=== PATIENT | female | born 1965 | race African-American/Black ===

== ENCOUNTER 2017-01-25 11:35 | Inpatient (IN) | payer MEDICARE ==
[~2017-01-25] VITALS: Ht 167.6 cm; Wt 93.1 kg
[~2017-01-25 11:35] MED LIST: DIVA500T52 PO; LISI-660 PO; METF500T PO; RISP2TAB76 PO; SIMV-259 PO; VITAD1000 PO
[2017-01-25] MEDS ORDERED: LORazepam 2 MG/ML VIAL IM ONE ×2 (12:00→17:30)
[2017-01-25] MEDS ORDERED: DiphenhydrAMINE HCL 50 MG/ML VIAL IM ONE ×2 (12:00→17:30)
[2017-01-25] MEDS ORDERED: HALOPERIDOL LACTATE 5 MG/ML VIAL IM ONE ×2 (12:00→17:30)
[2017-01-25 12:45] LABS: BASOPHILS # (AUTO) 0.02 K/uL (0.00-0.20); BASOPHILS % (AUTO) 0.2 % (0.0-2.0); EOSINOPHILS # (AUTO) 0.05 K/uL (0.00-0.70); LYMPHOCYTES # (AUTO) 1.6 K/uL (1.0-4.8); LYMPHOCYTES % (AUTO) 23.7 % (22.0-44.0); MEAN CORPUSCULAR HEMOGLOBIN 27.4 pg (26.0-34.0); MEAN CORPUSCULAR HGB CONC 32.6 G/dL (31.0-37.0); MEAN CORPUSCULAR VOLUME 84 fL (80-100); MONOCYTES # (AUTO) 0.3 K/uL (0.1-1.0); MONOCYTES % (AUTO) 4.8 % (2.0-9.0); NEUTROPHILS # (AUTO) 4.8 K/uL (1.8-7.7); NEUTROPHILS % (AUTO) 70.5 % (40.0-70.0); PLATELET COUNT (AUTO) 328 K/uL (150-450); RED BLOOD CELL COUNT(AUTO) 5.11 MIL/uL (4.00-5.20); RED CELL DISTRIBUTION WIDTH 16.2 % (11.5-14.5); WHITE BLOOD COUNT (AUTO) 6.8 K/uL (4.5-11.0)
[2017-01-25 12:59] LABS: ANION GAP 9 mmol/L (8-16); CARBON DIOXIDE 26 mmol/L (22-29); CHLORIDE 100 mmol/L (98-107); CREATININE 0.73 mg/dL (0.60-1.30); GLOMERULAR FILTR. RATE CALC > 60 mL/min (>60); POTASSIUM 3.9 mmol/L (3.5-5.1); SODIUM SERUM 135 mmol/L (136-145); UREA NITROGEN, BLOOD 11 mg/dL (7-18)
[2017-01-25 13:00] LABS: ALANINE AMINOTRANSFERASE 23 U/L (12-78); ALBUMIN 3.5 g/dL (3.4-5.0); ASPARTATE AMINOTRANSFERASE 12 U/L (15-37); BILIRUBIN,TOTAL 0.5 mg/dL (0.1-1.0); TOTAL PROTEIN, SERUM 7.5 g/dL (6.4-8.2)
[2017-01-25 15:28] LABS: VALPROIC ACID < 3 mcg/mL (50-100)
[2017-01-25] MEDS ORDERED: ZOLPIDEM TARTRATE 10 MG TABLET PO PRN (16:15)
[2017-01-25] MEDS ORDERED: LORazepam 2 MG TABLET PO PRN (16:15)
[2017-01-25] MEDS ORDERED: GLUCAGON,HUMAN RECOMBINANT 1 MG VIAL IM PRN (18:15)
[2017-01-25] MEDS ORDERED: INSULIN ASPART 100 UNITS/ML SQ PRN (18:15)
[2017-01-25 20:22] VITALS: BP 117/68
[2017-01-25] MEDS: RisperiDONE 2 MG TABLET PO SCH (20:38)
[2017-01-25 20:47] LABS: GLUCOSE COMMENT 1 Received Meds; GLUCOSE,POINT OF CARE 313 MG/DL (70-110)
[2017-01-25] MEDS ORDERED: DIVALPROEX SODIUM 500 MG ER TABLET PO SCH (21:00)
[2017-01-26] MEDS: MetFORMIN HCL 500 MG TABLET PO SCH ×2 (06:26→16:46)
[2017-01-26 06:42] VITALS: BP 125/76
[2017-01-26] MEDS: CHOLECALCIFEROL (VIT D3) 1,000 UNITS TABLET PO SCH (08:24)
[2017-01-26] MEDS: RisperiDONE 2 MG TABLET PO SCH (08:24)
[2017-01-26] MEDS ORDERED: LORazepam 2 MG/ML VIAL ONE (15:55)
[2017-01-26] MEDS ORDERED: HALOPERIDOL LACTATE 5 MG/ML VIAL ONE (15:55)
[2017-01-26] MEDS ORDERED: DiphenhydrAMINE HCL 50 MG/ML VIAL IM ONE (16:00)
[2017-01-26] MEDS ORDERED: HALOPERIDOL LACTATE 5 MG/ML VIAL IM ONE (16:00)
[2017-01-26] MEDS ORDERED: LORazepam 2 MG/ML VIAL IM ONE (16:00)
[2017-01-26] MEDS: RisperiDONE 3 MG TABLET PO SCH (16:51)
[2017-01-26] MEDS: SIMVASTATIN 10 MG TABLET PO SCH (21:00)
[2017-01-26] MEDS: DIVALPROEX SODIUM 500 MG ER TABLET PO SCH (21:00)
[2017-01-27 02:35] VITALS: BP 118/73
[2017-01-27] MEDS: MetFORMIN HCL 500 MG TABLET PO SCH ×2 (06:42→16:36)
[2017-01-27 08:19] VITALS: BP 108/70
[2017-01-27] MEDS: CHOLECALCIFEROL (VIT D3) 1,000 UNITS TABLET PO SCH (09:00)
[2017-01-27] MEDS: RisperiDONE 3 MG TABLET PO SCH ×2 (09:00→16:36)
[2017-01-27 16:10] VITALS: BP 134/83
[2017-01-27] MEDS: SIMVASTATIN 10 MG TABLET PO SCH (21:00)
[2017-01-27] MEDS: DIVALPROEX SODIUM 500 MG ER TABLET PO SCH (21:00)
[2017-01-28 00:38] VITALS: BP 118/76
[2017-01-28] MEDS: MetFORMIN HCL 500 MG TABLET PO SCH ×2 (06:08→16:33)
[2017-01-28 08:19] VITALS: BP 118/69
[2017-01-28] MEDS: CHOLECALCIFEROL (VIT D3) 1,000 UNITS TABLET PO SCH (09:00)
[2017-01-28] MEDS: RisperiDONE 3 MG TABLET PO SCH ×2 (09:35→16:33)
[2017-01-28 16:33] VITALS: BP 137/75
[2017-01-28] MEDS: DIVALPROEX SODIUM 500 MG ER TABLET PO SCH (21:12)
[2017-01-28] MEDS: SIMVASTATIN 10 MG TABLET PO SCH (21:12)
[2017-01-29] MEDS: MetFORMIN HCL 500 MG TABLET PO SCH ×2 (06:36→16:42)
[2017-01-29 06:48] VITALS: BP 127/66
[2017-01-29 08:11] VITALS: BP 121/80
[2017-01-29] MEDS: RisperiDONE 3 MG TABLET PO SCH ×2 (08:27→16:43)
[2017-01-29] MEDS: CHOLECALCIFEROL (VIT D3) 1,000 UNITS TABLET PO SCH (08:30)
[2017-01-29 16:12] VITALS: BP 143/88
[2017-01-29] MEDS: SIMVASTATIN 10 MG TABLET PO SCH (20:13)
[2017-01-29] MEDS: DIVALPROEX SODIUM 500 MG ER TABLET PO SCH (20:13)
[2017-01-30 05:40] VITALS: BP 128/82
[2017-01-30] MEDS: MetFORMIN HCL 500 MG TABLET PO SCH ×2 (06:41→16:21)
[2017-01-30] MEDS: CHOLECALCIFEROL (VIT D3) 1,000 UNITS TABLET PO SCH (08:09)
[2017-01-30] MEDS: RisperiDONE 3 MG TABLET PO SCH ×2 (08:09→16:21)
[2017-01-30 08:37] VITALS: BP 122/67
[2017-01-30 16:07] VITALS: BP 130/67
[2017-01-30] MEDS: DIVALPROEX SODIUM 500 MG ER TABLET PO SCH (20:04)
[2017-01-30] MEDS: SIMVASTATIN 10 MG TABLET PO SCH (20:04)
[2017-01-31] MEDS: MetFORMIN HCL 500 MG TABLET PO SCH ×2 (06:11→16:53)
[2017-01-31 07:06] VITALS: BP 125/72
[2017-01-31] MEDS: CHOLECALCIFEROL (VIT D3) 1,000 UNITS TABLET PO SCH (08:19)
[2017-01-31] MEDS: RisperiDONE 3 MG TABLET PO SCH ×2 (08:19→16:19)
[2017-01-31 08:39] VITALS: BP 120/62
[2017-01-31 16:07] VITALS: BP 102/70
[2017-01-31] MEDS: DIVALPROEX SODIUM 500 MG ER TABLET PO SCH (21:00)
[2017-01-31] MEDS: SIMVASTATIN 10 MG TABLET PO SCH (21:00)
[2017-02-01 06:39] VITALS: BP 136/84
[2017-02-01] MEDS: MetFORMIN HCL 500 MG TABLET PO SCH ×2 (06:50→17:03)
[2017-02-01] MEDS: CHOLECALCIFEROL (VIT D3) 1,000 UNITS TABLET PO SCH (08:11)
[2017-02-01] MEDS: RisperiDONE 3 MG TABLET PO SCH ×2 (08:11→16:45)
[2017-02-01 08:48] VITALS: BP 122/69
[2017-02-01 16:37] VITALS: BP 137/72
[2017-02-01] MEDS: DIVALPROEX SODIUM 500 MG ER TABLET PO SCH (20:02)
[2017-02-01] MEDS: SIMVASTATIN 10 MG TABLET PO SCH (20:02)
[2017-02-02 01:51] VITALS: BP 122/75
[2017-02-02] MEDS: MetFORMIN HCL 500 MG TABLET PO SCH ×2 (06:41→17:00)
[2017-02-02] MEDS: RisperiDONE 3 MG TABLET PO SCH ×2 (08:00→17:00)
[2017-02-02] MEDS: HALOPERIDOL 5 MG TABLET PO SCH ×2 (08:00→17:00)
[2017-02-02] MEDS: CHOLECALCIFEROL (VIT D3) 1,000 UNITS TABLET PO SCH (08:00)
[2017-02-02 08:33] VITALS: BP 131/75
[2017-02-02 16:00] VITALS: BP 115/63
[2017-02-02] MEDS: SIMVASTATIN 10 MG TABLET PO SCH (20:49)
[2017-02-02] MEDS: DIVALPROEX SODIUM 500 MG ER TABLET PO SCH (20:49)
[2017-02-03] MEDS: MetFORMIN HCL 500 MG TABLET PO SCH ×2 (06:41→16:16)
[2017-02-03 06:55] VITALS: BP 130/62
[2017-02-03] MEDS: RisperiDONE 3 MG TABLET PO SCH ×2 (08:01→16:17)
[2017-02-03] MEDS: CHOLECALCIFEROL (VIT D3) 1,000 UNITS TABLET PO SCH (08:01)
[2017-02-03] MEDS: HALOPERIDOL 5 MG TABLET PO SCH ×2 (08:01→16:16)
[2017-02-03 08:31] VITALS: BP 115/66
[2017-02-03 16:00] VITALS: BP 116/68
[2017-02-03] MEDS: DIVALPROEX SODIUM 500 MG ER TABLET PO SCH (20:15)
[2017-02-03] MEDS: SIMVASTATIN 10 MG TABLET PO SCH (20:15)
[2017-02-04] MEDS: MetFORMIN HCL 500 MG TABLET PO SCH ×2 (06:39→16:56)
[2017-02-04 07:04] VITALS: BP 120/72
[2017-02-04 08:05] VITALS: BP 147/84
[2017-02-04] MEDS: HALOPERIDOL 5 MG TABLET PO SCH (08:32)
[2017-02-04] MEDS: CHOLECALCIFEROL (VIT D3) 1,000 UNITS TABLET PO SCH (08:32)
[2017-02-04] MEDS: RisperiDONE 3 MG TABLET PO SCH ×2 (08:32→16:29)
[2017-02-04 16:10] VITALS: BP 119/75
[2017-02-04] MEDS: DIVALPROEX SODIUM 500 MG ER TABLET PO SCH (20:06)
[2017-02-04] MEDS: SIMVASTATIN 10 MG TABLET PO SCH (21:00)
[2017-02-05] MEDS: MetFORMIN HCL 500 MG TABLET PO SCH ×2 (06:12→16:46)
[2017-02-05 06:40] VITALS: BP 123/80
[2017-02-05] MEDS: RisperiDONE 3 MG TABLET PO SCH ×2 (08:09→16:46)
[2017-02-05] MEDS: CHOLECALCIFEROL (VIT D3) 1,000 UNITS TABLET PO SCH (08:09)
[2017-02-05 08:38] VITALS: BP 132/73
[2017-02-05 16:00] VITALS: BP 108/67
[2017-02-05] MEDS: SIMVASTATIN 10 MG TABLET PO SCH (20:05)
[2017-02-05] MEDS: DIVALPROEX SODIUM 500 MG ER TABLET PO SCH (20:05)
[2017-02-06 06:13] VITALS: BP 119/74
[2017-02-06] MEDS: MetFORMIN HCL 500 MG TABLET PO SCH ×2 (06:39→16:43)
[2017-02-06 08:01] VITALS: BP 123/71
[2017-02-06] MEDS: RisperiDONE 3 MG TABLET PO SCH ×2 (09:00→16:43)
[2017-02-06] MEDS: CHOLECALCIFEROL (VIT D3) 1,000 UNITS TABLET PO SCH ×2 (09:00→09:01)
[2017-02-06 16:11] VITALS: BP 133/69
[2017-02-06] MEDS: SIMVASTATIN 10 MG TABLET PO SCH (20:25)
[2017-02-06] MEDS: DIVALPROEX SODIUM 500 MG ER TABLET PO SCH (20:26)
[2017-02-07 06:27] VITALS: BP 128/72
[2017-02-07] MEDS: MetFORMIN HCL 500 MG TABLET PO SCH ×2 (06:55→16:45)
[2017-02-07] MEDS: RisperiDONE 3 MG TABLET PO SCH ×2 (08:14→16:45)
[2017-02-07] MEDS: CHOLECALCIFEROL (VIT D3) 1,000 UNITS TABLET PO SCH (08:14)
[2017-02-07 08:53] VITALS: BP 118/67
[2017-02-07 16:07] VITALS: BP 119/77
[2017-02-07] MEDS: DIVALPROEX SODIUM 500 MG ER TABLET PO SCH (20:09)
[2017-02-07] MEDS: SIMVASTATIN 10 MG TABLET PO SCH (20:09)
[2017-02-08] MEDS: MetFORMIN HCL 500 MG TABLET PO SCH ×2 (06:14→16:28)
[2017-02-08 07:11] VITALS: BP 120/72
[2017-02-08 08:20] VITALS: BP 155/69
[2017-02-08] MEDS: RisperiDONE 3 MG TABLET PO SCH ×2 (09:21→16:28)
[2017-02-08] MEDS: CHOLECALCIFEROL (VIT D3) 1,000 UNITS TABLET PO SCH (09:21)
[2017-02-08 16:05] VITALS: BP 123/65
[2017-02-08] MEDS: DIVALPROEX SODIUM 500 MG ER TABLET PO SCH (20:22)
[2017-02-08] MEDS: SIMVASTATIN 10 MG TABLET PO SCH (20:22)
[2017-02-09 06:13] VITALS: BP 125/72
[2017-02-09] MEDS: MetFORMIN HCL 500 MG TABLET PO SCH ×2 (06:37→16:37)
[2017-02-09] MEDS: RisperiDONE 3 MG TABLET PO SCH ×2 (08:08→16:37)
[2017-02-09] MEDS: CHOLECALCIFEROL (VIT D3) 1,000 UNITS TABLET PO SCH (08:08)
[2017-02-09 08:11] VITALS: BP 140/81
[2017-02-09 16:00] VITALS: BP 104/64
[2017-02-09] MEDS: SIMVASTATIN 10 MG TABLET PO SCH (20:18)
[2017-02-09] MEDS: DIVALPROEX SODIUM 500 MG ER TABLET PO SCH (20:19)
[2017-02-10] MEDS: MetFORMIN HCL 500 MG TABLET PO SCH ×2 (07:01→17:05)
[2017-02-10] MEDS: RisperiDONE 3 MG TABLET PO SCH ×2 (08:24→17:05)
[2017-02-10] MEDS: CHOLECALCIFEROL (VIT D3) 1,000 UNITS TABLET PO SCH (08:24)
[2017-02-10 08:28] VITALS: BP 107/51
[2017-02-10 16:00] VITALS: BP 129/64
[2017-02-10] MEDS: SIMVASTATIN 10 MG TABLET PO SCH (20:27)
[2017-02-10] MEDS: DIVALPROEX SODIUM 500 MG ER TABLET PO SCH (20:27)
[2017-02-11] MEDS: MetFORMIN HCL 500 MG TABLET PO SCH ×2 (06:37→17:08)
[2017-02-11 08:09] VITALS: BP 120/73
[2017-02-11] MEDS: RisperiDONE 3 MG TABLET PO SCH ×2 (08:30→17:08)
[2017-02-11] MEDS: CHOLECALCIFEROL (VIT D3) 1,000 UNITS TABLET PO SCH (08:30)
[2017-02-11 16:03] VITALS: BP 133/87
[2017-02-11] MEDS: DIVALPROEX SODIUM 500 MG ER TABLET PO SCH (20:12)
[2017-02-11] MEDS: SIMVASTATIN 10 MG TABLET PO SCH (20:12)
[2017-02-12 05:28] VITALS: BP 125/78
[2017-02-12] MEDS: MetFORMIN HCL 500 MG TABLET PO SCH ×2 (06:42→16:33)
[2017-02-12 08:00] VITALS: BP 112/55
[2017-02-12] MEDS: RisperiDONE 3 MG TABLET PO SCH ×2 (08:05→16:33)
[2017-02-12] MEDS: CHOLECALCIFEROL (VIT D3) 1,000 UNITS TABLET PO SCH (08:05)
[2017-02-12 16:11] VITALS: BP 115/64
[2017-02-12] MEDS: SIMVASTATIN 10 MG TABLET PO SCH (20:01)
[2017-02-12] MEDS: DIVALPROEX SODIUM 500 MG ER TABLET PO SCH (20:01)
[2017-02-13] MEDS: MetFORMIN HCL 500 MG TABLET PO SCH ×2 (06:29→16:43)
[2017-02-13 07:04] VITALS: BP 110/72
[2017-02-13 08:21] VITALS: BP 136/77
[2017-02-13] MEDS: DIVALPROEX SODIUM 500 MG ER TABLET PO SCH ×2 (08:33→20:05)
[2017-02-13] MEDS: CHOLECALCIFEROL (VIT D3) 1,000 UNITS TABLET PO SCH (08:33)
[2017-02-13] MEDS: RisperiDONE 3 MG TABLET PO SCH ×2 (08:33→16:43)
[2017-02-13 16:14] VITALS: BP 129/84
[2017-02-13] MEDS: SIMVASTATIN 10 MG TABLET PO SCH (20:05)
[2017-02-14] MEDS: MetFORMIN HCL 500 MG TABLET PO SCH ×2 (06:58→16:09)
[2017-02-14 07:13] VITALS: BP 135/86
[2017-02-14] MEDS: CHOLECALCIFEROL (VIT D3) 1,000 UNITS TABLET PO SCH (08:01)
[2017-02-14] MEDS: RisperiDONE 3 MG TABLET PO SCH ×2 (08:01→16:09)
[2017-02-14] MEDS: DIVALPROEX SODIUM 500 MG ER TABLET PO SCH ×2 (08:01→20:09)
[2017-02-14 10:44] VITALS: BP 127/68
[2017-02-14 16:02] VITALS: BP 122/72
[2017-02-14] MEDS: SIMVASTATIN 10 MG TABLET PO SCH (20:09)
[2017-02-15] MEDS: MetFORMIN HCL 500 MG TABLET PO SCH ×2 (06:30→17:03)
[2017-02-15 07:23] VITALS: BP 120/72
[2017-02-15] MEDS: RisperiDONE 3 MG TABLET PO SCH ×2 (08:05→16:36)
[2017-02-15] MEDS: DIVALPROEX SODIUM 500 MG ER TABLET PO SCH ×2 (08:05→20:05)
[2017-02-15] MEDS: CHOLECALCIFEROL (VIT D3) 1,000 UNITS TABLET PO SCH (08:05)
[2017-02-15 08:07] VITALS: BP 104/61
[2017-02-15 16:02] VITALS: BP 113/63
[2017-02-15] MEDS: SIMVASTATIN 10 MG TABLET PO SCH (20:05)
[2017-02-16] MEDS: MetFORMIN HCL 500 MG TABLET PO SCH ×2 (06:38→16:37)
[2017-02-16 06:40] VITALS: BP 107/74
[2017-02-16] MEDS: DIVALPROEX SODIUM 500 MG ER TABLET PO SCH ×2 (08:04→20:34)
[2017-02-16] MEDS: CHOLECALCIFEROL (VIT D3) 1,000 UNITS TABLET PO SCH (08:04)
[2017-02-16] MEDS: RisperiDONE 3 MG TABLET PO SCH ×2 (08:04→16:37)
[2017-02-16 16:04] VITALS: BP 105/64
[2017-02-16] MEDS: HALOPERIDOL 5 MG TABLET PO PRN (16:08)
[2017-02-16] MEDS: SIMVASTATIN 10 MG TABLET PO SCH (20:34)
[2017-02-17 03:48] VITALS: BP 108/66
[2017-02-17] MEDS: MetFORMIN HCL 500 MG TABLET PO SCH ×2 (06:38→16:33)
[2017-02-17 08:24] VITALS: BP 116/59
[2017-02-17] MEDS: CHOLECALCIFEROL (VIT D3) 1,000 UNITS TABLET PO SCH (08:28)
[2017-02-17] MEDS: RisperiDONE 3 MG TABLET PO SCH ×2 (08:28→16:34)
[2017-02-17] MEDS: DIVALPROEX SODIUM 500 MG ER TABLET PO SCH ×2 (08:28→20:21)
[2017-02-17 16:00] VITALS: BP 118/71
[2017-02-17] MEDS: HALOPERIDOL 5 MG TABLET PO PRN (16:33)
[2017-02-17] MEDS: SIMVASTATIN 10 MG TABLET PO SCH (20:21)
[2017-02-18] MEDS: MetFORMIN HCL 500 MG TABLET PO SCH ×2 (06:12→16:20)
[2017-02-18 06:41] VITALS: BP 120/78
[2017-02-18 08:27] VITALS: BP 114/73
[2017-02-18] MEDS: RisperiDONE 3 MG TABLET PO SCH ×2 (09:04→16:20)
[2017-02-18] MEDS: CHOLECALCIFEROL (VIT D3) 1,000 UNITS TABLET PO SCH (09:04)
[2017-02-18] MEDS: DIVALPROEX SODIUM 500 MG ER TABLET PO SCH ×2 (09:04→20:19)
[2017-02-18 16:05] VITALS: BP 110/63
[2017-02-18] MEDS: SIMVASTATIN 10 MG TABLET PO SCH (20:19)
[2017-02-19 05:27] VITALS: BP 114/72
[2017-02-19] MEDS: MetFORMIN HCL 500 MG TABLET PO SCH ×2 (06:54→17:04)
[2017-02-19 08:01] VITALS: BP 115/61
[2017-02-19] MEDS: DIVALPROEX SODIUM 500 MG ER TABLET PO SCH ×2 (08:49→20:01)
[2017-02-19] MEDS: RisperiDONE 3 MG TABLET PO SCH ×2 (08:49→16:40)
[2017-02-19] MEDS: CHOLECALCIFEROL (VIT D3) 1,000 UNITS TABLET PO SCH (08:49)
[2017-02-19 16:00] VITALS: BP 116/64
[2017-02-19] MEDS: SIMVASTATIN 10 MG TABLET PO SCH (20:01)
[2017-02-20 06:10] VITALS: BP 115/62
[2017-02-20] MEDS: MetFORMIN HCL 500 MG TABLET PO SCH ×2 (06:43→16:40)
[2017-02-20 08:23] VITALS: BP 110/63
[2017-02-20] MEDS: DIVALPROEX SODIUM 500 MG ER TABLET PO SCH ×2 (08:59→21:10)
[2017-02-20] MEDS: CHOLECALCIFEROL (VIT D3) 1,000 UNITS TABLET PO SCH (08:59)
[2017-02-20] MEDS: RisperiDONE 3 MG TABLET PO SCH ×2 (08:59→16:40)
[2017-02-20 16:00] VITALS: BP 112/78
[2017-02-20] MEDS: SIMVASTATIN 10 MG TABLET PO SCH (21:10)
[2017-02-21] MEDS: MetFORMIN HCL 500 MG TABLET PO SCH ×2 (06:41→16:40)
[2017-02-21 06:58] VITALS: BP 119/62
[2017-02-21 08:17] VITALS: BP 104/61
[2017-02-21] MEDS: DIVALPROEX SODIUM 500 MG ER TABLET PO SCH ×2 (08:47→20:12)
[2017-02-21] MEDS: CHOLECALCIFEROL (VIT D3) 1,000 UNITS TABLET PO SCH (08:47)
[2017-02-21] MEDS: RisperiDONE 3 MG TABLET PO SCH ×2 (08:47→16:40)
[2017-02-21 16:16] VITALS: BP 120/86
[2017-02-21] MEDS: SIMVASTATIN 10 MG TABLET PO SCH (20:11)
[2017-02-22] MEDS: MetFORMIN HCL 500 MG TABLET PO SCH ×2 (07:00→17:09)
[2017-02-22 08:09] VITALS: BP 115/67
[2017-02-22] MEDS: CHOLECALCIFEROL (VIT D3) 1,000 UNITS TABLET PO SCH (10:33)
[2017-02-22] MEDS: RisperiDONE 3 MG TABLET PO SCH ×2 (10:33→16:19)
[2017-02-22] MEDS: DIVALPROEX SODIUM 500 MG ER TABLET PO SCH ×2 (10:33→20:17)
[2017-02-22 16:01] VITALS: BP 124/79
[2017-02-22] MEDS: SIMVASTATIN 10 MG TABLET PO SCH (20:17)
[2017-02-23 05:37] VITALS: BP 118/72
[2017-02-23] MEDS: MetFORMIN HCL 500 MG TABLET PO SCH ×2 (06:27→16:27)
[2017-02-23] MEDS: RisperiDONE 3 MG TABLET PO SCH ×2 (08:09→16:27)
[2017-02-23] MEDS: DIVALPROEX SODIUM 500 MG ER TABLET PO SCH ×2 (08:09→20:29)
[2017-02-23] MEDS: CHOLECALCIFEROL (VIT D3) 1,000 UNITS TABLET PO SCH (08:09)
[2017-02-23 08:14] VITALS: BP 90/60
[2017-02-23 08:15] VITALS: BP_SYST 123; BP_SYST 90; BP_DIAS 64; BP_DIAS 88
[2017-02-23 16:07] VITALS: BP 131/80
[2017-02-23] MEDS: HALOPERIDOL 5 MG TABLET PO PRN (16:28)
[2017-02-23] MEDS: SIMVASTATIN 10 MG TABLET PO SCH (20:29)
[2017-02-24 06:29] VITALS: BP 116/67
[2017-02-24] MEDS: MetFORMIN HCL 500 MG TABLET PO SCH ×2 (06:40→17:09)
[2017-02-24 08:04] VITALS: BP 153/54
[2017-02-24] MEDS: DIVALPROEX SODIUM 500 MG ER TABLET PO SCH ×2 (08:23→20:07)
[2017-02-24] MEDS: RisperiDONE 3 MG TABLET PO SCH ×2 (08:23→16:21)
[2017-02-24] MEDS: CHOLECALCIFEROL (VIT D3) 1,000 UNITS TABLET PO SCH (08:23)
[2017-02-24 16:07] VITALS: BP 125/63
[2017-02-24] MEDS: SIMVASTATIN 10 MG TABLET PO SCH (20:07)
[2017-02-25] MEDS: MetFORMIN HCL 500 MG TABLET PO SCH ×2 (06:28→16:48)
[2017-02-25 06:41] VITALS: BP 117/66
[2017-02-25] MEDS: DIVALPROEX SODIUM 500 MG ER TABLET PO SCH ×2 (08:18→20:07)
[2017-02-25] MEDS: CHOLECALCIFEROL (VIT D3) 1,000 UNITS TABLET PO SCH (08:18)
[2017-02-25] MEDS: RisperiDONE 3 MG TABLET PO SCH ×2 (08:18→16:03)
[2017-02-25 08:56] VITALS: BP 119/69
[2017-02-25 16:05] VITALS: BP 128/72
[2017-02-25] MEDS: SIMVASTATIN 10 MG TABLET PO SCH (20:07)
[2017-02-26 04:49] VITALS: BP 127/74
[2017-02-26] MEDS: MetFORMIN HCL 500 MG TABLET PO SCH ×2 (06:24→16:16)
[2017-02-26 08:38] VITALS: BP 135/74
[2017-02-26] MEDS: RisperiDONE 3 MG TABLET PO SCH ×2 (08:46→16:16)
[2017-02-26] MEDS: CHOLECALCIFEROL (VIT D3) 1,000 UNITS TABLET PO SCH (08:46)
[2017-02-26] MEDS: DIVALPROEX SODIUM 500 MG ER TABLET PO SCH ×2 (08:46→20:21)
[2017-02-26 16:11] VITALS: BP 100/77
[2017-02-26] MEDS: SIMVASTATIN 10 MG TABLET PO SCH (20:21)
[2017-02-27 04:39] VITALS: BP 110/74
[2017-02-27] MEDS: MetFORMIN HCL 500 MG TABLET PO SCH (06:12)
[2017-02-27] MEDS: CHOLECALCIFEROL (VIT D3) 1,000 UNITS TABLET PO SCH (08:28)
[2017-02-27] MEDS: RisperiDONE 3 MG TABLET PO SCH (08:28)
[2017-02-27] MEDS: DIVALPROEX SODIUM 500 MG ER TABLET PO SCH (08:28)
[2017-02-27 08:33] VITALS: BP 123/73
[2017-02-27 08:34] LABS: BASOPHILS % (AUTO) 0.2 % (0.0-2.0); EOSINOPHILS % (AUTO) 1.2 % (1.0-6.0); HEMATOCRIT 43.4 % (36-46); HEMOGLOBIN 14.2 g/dL (12.0-16.0); LYMPHOCYTES # (AUTO) 3.1 K/uL (1.0-4.8); LYMPHOCYTES % (AUTO) 48.1 % (22.0-44.0); MEAN CORPUSCULAR HEMOGLOBIN 27.8 pg (26.0-34.0); MEAN CORPUSCULAR HGB CONC 32.7 G/dL (31.0-37.0); MEAN CORPUSCULAR VOLUME 85 fL (80-100); MONOCYTES # (AUTO) 0.5 K/uL (0.1-1.0); MONOCYTES % (AUTO) 7.2 % (2.0-9.0); NEUTROPHILS # (AUTO) 2.8 K/uL (1.8-7.7); NEUTROPHILS % (AUTO) 43.3 % (40.0-70.0); PLATELET COUNT (AUTO) 233 K/uL (150-450); RED CELL DISTRIBUTION WIDTH 16.2 % (11.5-14.5); WHITE BLOOD COUNT (AUTO) 6.5 K/uL (4.5-11.0)
[2017-02-27 08:46] LABS: HEMOGLOBIN A1C 10.7 % (4.5-6.2)
[2017-02-27 09:12] LABS: ALANINE AMINOTRANSFERASE 21 U/L (12-78); ALBUMIN 3.4 g/dL (3.4-5.0); ANION GAP 8 mmol/L (8-16); ASPARTATE AMINOTRANSFERASE 14 U/L (15-37); BILIRUBIN,TOTAL 0.3 mg/dL (0.1-1.0); CALCIUM, TOTAL 8.7 mg/dL (8.8-10.5); CARBON DIOXIDE 28 mmol/L (22-29); CHLORIDE 105 mmol/L (98-107); CREATININE 0.66 mg/dL (0.60-1.30); GLOMERULAR FILTR. RATE CALC > 60 mL/min (>60); POTASSIUM 4.2 mmol/L (3.5-5.1); SODIUM SERUM 141 mmol/L (136-145); THYROID STIMULATING HORMONE 2.39 uIU/mL (0.36-3.74); TOTAL PROTEIN, SERUM 7.3 g/dL (6.4-8.2); UREA NITROGEN, BLOOD 13 mg/dL (7-18); VALPROIC ACID 123 mcg/mL (50-100)
[2017-02-27] MEDS ORDERED: DIVA500T52 PO ×2 (11:16)
[2017-02-27] MEDS ORDERED: RISP3 PO (11:16)
== END 2017-02-27 13:36 | disposition home or self-care (01) | DRG 885 ==
LOC: EMS 11:42 → B3A 18:31
PROVIDERS: ADMIT Psychiatry & Neurology Psychiatry; ATTEND Psychiatry & Neurology Psychiatry
DX: F20.0 Paranoid schizophrenia (principal); E11.65 Type 2 diabetes mellitus with hyperglycemia; I10 Essential (primary) hypertension; F17.200 Nicotine dependence, unspecified, uncomplicated; J44.9 Chronic obstructive pulmonary disease, unspecified; K59.00 Constipation, unspecified; M19.90 Unspecified osteoarthritis, unspecified site; Z71.6 Tobacco abuse counseling; Z91.19 Patient's noncompliance with other medical treatment and regimen
CPT/HCPCS: 82962; 83036; 84436; 84439; 84443; 87081; 96372; 99285; G0480; J1200; J1630; J2060